=== PATIENT | male | born 1970 | race Caucasian/White ===

== ENCOUNTER 2017-08-09 13:24 | Emergency (ER) | payer BC ==
[2017-08-09 13:31] VITALS: BP 144/81; PULSE 80; TEMP 98.5; O2SAT 98
[2017-08-09] MEDS ORDERED: Dexamethasone 4 mg/1 ml IM STA (13:52)
[2017-08-09] MEDS ORDERED: Dexamethasone 4 mg/1 ml ONE (14:14)
--- NOTE | 2017-08-09 14:53 | C.PDOC ---
History Of Present Illness 47 year old male presents to the ED with complaint of a sudden onset of sharp non-radiating lower back pain which began after lifting a heavy object at work today. 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 Patient denies numbness, weakness, bowel and bladder incontinence, falls, recent trauma, abdominal pain, fever, or saddle anesthesia. Time Seen by Provider: 08/09/17 13:46 Chief Complaint (Nursing): Back Pain History Per: Patient History/Exam Limitations: no limitations Onset/Duration Of Symptoms: Hrs, Sudden Onset Current Symptoms Are (Timing): Still Present Quality Of Discomfort: Sharp (lower back), "Pain" Previous Symptoms: Back Pain Associated Symptoms: denies: Incontinence, New Weakness, New Numbness Recent travel outside of the [place]: No Additional History Per: Patient Past Medical History Reviewed: Historical Data, Nursing Documentation, Vital Signs Vital Signs: Last Vital Signs Temp 98.5 F 08/09/17 13:30 Pulse 80 08/09/17 13:30 Resp 20 08/09/17 15:00 BP 144/81 08/09/17 13:30 Pulse Ox 98 08/09/17 15:50 - Medical History PMH: No Chronic Diseases Surgical History: No Surg Hx Family History: States: Unknown Family Hx - Social History Hx Alcohol Use: Yes Hx Substance Use: No - Immunization History Hx Tetanus Toxoid Vaccination: No Hx Influenza Vaccination: No Hx Pneumococcal Vaccination: No Review Of Systems Constitutional: Negative for: Fever Gastrointestinal: Negative for: Abdominal Pain Genitourinary: Negative for: Incontinence Musculoskeletal: Positive for: Back Pain (lower ) Neurological: Negative for: Weakness, Numbness, Other (saddle anesthesia) Physical Exam - Physical Exam Appears: Well, No Acute Distress Skin: Normal Color, Warm, Dry Head: Atraumatic, Normacephalic Eye(s): bilateral: Normal Inspection Neck: Normal, Supple Chest: Symmetrical, No Deformity, No Tenderness Cardiovascular: Rhythm Regular, No Murmur Respiratory: Normal Breath Sounds, No Rales, No Rhonchi, No Wheezing Gastrointestinal/Abdominal: Normal Exam, Soft, No Tenderness, No Guarding, No Rebound Back: Paraspinal Tenderness (Lumbar) Extremity: Normal ROM, Capillary Refill (less than 2 seconds ) Neurological/Psych: Oriented x3, Normal Speech, Normal Cognition, Normal Motor, Normal Sensation Gait: Steady ED Course And Treatment O2 Sat by Pulse Oximetry: 98 (Room air) Pulse Ox Interpretation: Normal Medical Decision Making Medical Decision Making: Decadron IM, Toradol IM, and Flexeril PO administered. On re-exam, the patient reports improvement of symptoms. Ambulatory in the ED with steady gait. Lungs are CTA, heart is RRR, Abdomen is soft, non-tender and tolerating PO well. Follow up with the medical doctor within 1-2 days. Return if worsened. Disposition - Disposition Referrals: Cassius Fowler Jr., MD [Primary Care Provider] - Disposition: HOME/ ROUTINE Disposition Time: 14:48 Condition: GOOD Additional Instructions: Follow up with the medical doctor within 1-2 days. Return if worsened. Prescriptions: Cyclobenzaprine [Cyclobenzaprine HCl] 10 mg PO BID #21 tab Naproxen [Naprosyn] 500 mg PO BID #20 tab Instructions: Acute Low Back Pain (ED), Back Exercises (ED) Forms: [employer] ([place]), Work Excuse Print Language: GREENLANDIC - Clinical Impression Clinical Impression: Low back strain - Scribe Statement The provider has reviewed the documentation as recorded by the Scribe Abiel Patel All medical record entries made by the Scribe were at my direction and personally dictated by me. I have reviewed the chart and agree that the record accurately reflects my personal performance of the history, physical exam, medical decision making, and the department course for this patient. I have also personally directed, reviewed, and agree with the discharge instructions and disposition.
[2017-08-09 15:01] VITALS: RESP 20
== END 2017-08-09 15:00 | disposition home or self-care (01) ==
LOC: C.ER 13:24 → SUPCPDRO 13:24 → C.ER 15:00
DX: S39.012A Strain of muscle, fascia and tendon of lower back, initial encounter (principal); X50.0XXA Overexertion from strenuous movement or load, initial encounter; Y92.89 Other specified places as the place of occurrence of the external cause; Y99.0 Civilian activity done for income or pay
CPT/HCPCS: 96372; 99284; J1100; J1885

== ENCOUNTER 2017-12-22 09:09 | Emergency (ER) | payer BC, OTHER ==
[2017-12-22 09:17] VITALS: BP 161/92; PULSE 89; RESP 18; TEMP 98.5; O2SAT 99
--- NOTE | 2017-12-22 10:04 | C.PDOC ---
History Of Present Illness 47 y/o male presents to ED for evaluation of right foot pain for the last 2 days. Notes that pain is worse at the base of big toe. Pt states that he has history of gout and the symptoms feel similar to his previous flare up. Denies fall, injury, or fever. Time Seen by Provider: 12/22/17 09:21 Chief Complaint (Nursing): Lower Extremity Problem/Injury History Per: Patient History/Exam Limitations: no limitations Onset/Duration Of Symptoms: Days Current Symptoms Are (Timing): Still Present Additional History Per: Patient Past Medical History Reviewed: Historical Data, Nursing Documentation, Vital Signs Vital Signs: Last Vital Signs Temp 98.5 F 12/22/17 09:14 Pulse 89 12/22/17 09:14 Resp 18 12/22/17 09:14 BP 161/92 H 12/22/17 09:14 Pulse Ox 99 12/22/17 12:14 - Medical History PMH: Arthritis Family History: States: Unknown Family Hx - Social History Hx Alcohol Use: Yes Hx Substance Use: No - Immunization History Hx Tetanus Toxoid Vaccination: No Hx Influenza Vaccination: No Hx Pneumococcal Vaccination: No Review Of Systems Except As Marked, All Systems Reviewed And Found Negative. Constitutional: Negative for: Fever, Chills Musculoskeletal: Positive for: Foot Pain (right) Neurological: Negative for: Weakness, Numbness Physical Exam - Physical Exam Appears: Non-toxic, Other (In moderate pain) Skin: Normal Color, Warm, Dry Head: Normacephalic Eye(s): bilateral: Normal Inspection Oral Mucosa: Moist Cardiovascular: Rhythm Regular, No Murmur Respiratory: Normal Breath Sounds, No Rales, No Rhonchi, No Wheezing Extremity: Normal ROM, Tenderness (tenderness to right foot 1st MTP joint upon palpation), No Calf Tenderness, Capillary Refill (less than 2 seconds), No Deformity, Swelling (mild swelling, warmth to touch, and erythema to right foot 1st MTP joint) Pulses: Left Dorsalis Pedis: Normal, Right Dorsalis Pedis: Normal Neurological/Psych: Oriented x3, Normal Speech ED Course And Treatment O2 Sat by Pulse Oximetry: 99 Progress Note: Pt was given Colchicine, and Indomethacin. Pt is being discharged home with Rx, and is instructed to follow up with PMD in 1-2 days for further evaluation. Disposition Counseled Patient/Family Regarding: Diagnosis, Need For Followup, Rx Given - Disposition Referrals: [facility] [Outside] Disposition: HOME/ ROUTINE Disposition Time: 10:15 Condition: STABLE Additional Instructions: FOLLOW UP WITH YOUR DOCTOR/CLINIC IN 1-2 DAYS USE MEDICATIONS DIRECTED RETURN TO EMERGENCY ROOM IF SYMPTOMS WORSEN SEGUIMIENTO CON ARTIS MDICO / CLNICA EN 1-2 CARPIO USE MEDICAMENTOS SEGN LO INDICADO REGRESE AL JOHNNY DE EMERGENCIA SI LOS SNTOMAS EMPEORAN Prescriptions: Colchicine 0.6 mg PO BID #10 tablet Indomethacin [Indocin] 50 mg PO TID PRN #15 cap PRN Reason: PAIN Instructions: Gout (DC) Forms: [email or web address] (Albanian), Work Excuse Print Language: SINHALA - Clinical Impression Clinical Impression: Gout of right foot - Scribe Statement The provider has reviewed the documentation as recorded by the Scribe Chaitanya Mora All medical record entries made by the Scribe were at my direction and personally dictated by me. I have reviewed the chart and agree that the record accurately reflects my personal performance of the history, physical exam, medical decision making, and the department course for this patient. I have also personally directed, reviewed, and agree with the discharge instructions and disposition.
== END 2017-12-22 10:52 | disposition home or self-care (01) ==
LOC: C.ER 09:09
DX: M10.9 Gout, unspecified (principal)